=== PATIENT | female | born 1980 | race Caucasian/White ===

== ENCOUNTER 2017-04-03 08:50 | Emergency (ER) | payer MEDICAID ==
[~2017-04-03] VITALS: Ht 172.7 cm; Wt 100.1 kg
[~2017-04-03 08:50] MED LIST: ALBU8HFA PO; BENZ-16 PO; DEC4T PO; PRED10TA PO; PRED20TA PO; TERB12CR TP; [UNRECOGNIZED DRUG - CODE] PO
[2017-04-03] MEDS ORDERED: ipratropium/albuterol 3ml nebule NEB ONE (09:00)
[2017-04-03] MEDS ORDERED: triamcinolone acetonide 40mg/ml inj IM ONE (09:25)
[2017-04-03] MEDS ORDERED: ALBU6.7H INH (09:27)
[2017-04-03 09:32] VITALS: BP 108/51
[2017-04-03] MEDS ORDERED: albuterol 2.5 MG/3 ML nebule NEB ONE (09:55)
== END 2017-04-03 10:23 | disposition home or self-care (01) ==
LOC: ER 08:51
DX: J45.901 Unspecified asthma with (acute) exacerbation (principal); G89.29 Other chronic pain; Z79.899 Other long term (current) drug therapy
CPT/HCPCS: 71045; 94640; 94760; 96372; 99283; J3301

== ENCOUNTER 2018-02-23 19:56 | Emergency (ER) | payer MEDICAID ==
[~2018-02-23] VITALS: Ht 172.7 cm; Wt 86.7 kg
[~2018-02-23 19:56] MED LIST changes: +ALBU6.7H INH
[2018-02-23] MEDS ORDERED: dexamethasone 4mg tablet PO ONE (20:40)
[2018-02-23] MEDS ORDERED: triamcinolone acetonide 40mg/ml inj IM ONE (20:40)
[2018-02-23] MEDS ORDERED: ALBU6.7H INH (20:42)
[2018-02-23] MEDS ORDERED: PRED20TA PO (20:42)
[2018-02-23] MEDS ORDERED: albuterol 2.5 MG/3 ML nebule NEB ONE ×2 (20:50→21:10)
[2018-02-23] MEDS: albuterol 2.5 mg/0.5ml nebule NEB ONE ×2 (20:50→20:55)
--- NOTE | 2018-02-23 20:51 | NUR ---
RT AT BEDSIDE
[2018-02-23 21:33] VITALS: BP 119/74
== END 2018-02-23 21:35 | disposition home or self-care (01) ==
LOC: ER 19:56
DX: J45.901 Unspecified asthma with (acute) exacerbation (principal); G89.29 Other chronic pain; Z98.890 Other specified postprocedural states; Z79.899 Other long term (current) drug therapy; Z79.2 Long term (current) use of antibiotics
CPT/HCPCS: 94640; 94760; 96372; 99284; J3301; J7611; J8540; 99283

== ENCOUNTER 2018-10-18 17:18 | Emergency (ER) | payer MEDICAID ==
[~2018-10-18] VITALS: Ht 172.7 cm; Wt 86.0 kg
[~2018-10-18 17:18] MED LIST changes: -ALBU6.7H INH; +ALBU6.7H9 INH; +AZIT-31 PO; -[UNRECOGNIZED DRUG - CODE] PO
[2018-10-18] MEDS ORDERED: methylPREDNISolone sod succ 125mg/2ml vial IV ONE (17:40)
[2018-10-18] MEDS ORDERED: amox tr/potassium clavulanate 875/125mg TAB PO ONE (17:40)
[2018-10-18] MEDS ORDERED: ipratropium/albuterol 3ml nebule NEB ONE (17:40)
[2018-10-18] MEDS ORDERED: AMOX-580 PO (17:43)
[2018-10-18] MEDS ORDERED: METH4TAB81 PO (17:43)
[2018-10-18] MEDS ORDERED: prednisoLONE 15mg/5ml oral solution 5ml cup PO ONE (18:00)
[2018-10-18] MEDS ORDERED: predniSONE 20 mg tablet PO ONE (18:05)
[2018-10-18] MEDS ORDERED: albuterol 2.5 MG/3 ML nebule NEB ONE (18:50)
[2018-10-18 19:30] VITALS: BP 100/63
== END 2018-10-18 19:31 | disposition home or self-care (01) ==
LOC: ER 17:19
DX: J45.901 Unspecified asthma with (acute) exacerbation (principal); J32.9 Chronic sinusitis, unspecified; G89.29 Other chronic pain; Z98.890 Other specified postprocedural states; Z79.899 Other long term (current) drug therapy
CPT/HCPCS: 94640; 94760; 99284; J7512

== ENCOUNTER 2019-05-03 09:35 | Emergency (ER) | payer MEDICAID ==
[~2019-05-03] VITALS: Ht 172.7 cm; Wt 92.0 kg
[~2019-05-03 09:35] MED LIST changes: +METH4TAB81 PO
[2019-05-03 09:46] VITALS: BP 123/69
[2019-05-03 10:24] LABS: BASOPHILS % (AUTO) 0.6 % (0-1); EOSINOPHILS # (AUTO) 0.2 X10'3 (0-0.9); EOSINOPHILS % (AUTO) 2.6 % (0-6); HEMATOCRIT 35.6 % (35.0-45.0); HEMOGLOBIN 11.5 g/dl (12.0-16.0); LYMPHOCYTES # (AUTO) 1.9 X10'3 (1.1-4.8); MEAN CORPUSCULAR HEMOGLOBIN 23.6 PG (27.0-31.0); MEAN CORPUSCULAR HGB CONC 32.2 g/dL (33.0-36.5); MEAN CORPUSCULAR VOLUME 73.4 FL (78-98); MEAN PLATELET VOLUME 8.4 FL (7.4-10.4); MONOCYTES # (AUTO) 0.2 X10'3 (0-0.9); MONOCYTES % (AUTO) 3.7 % (2-12); NEUTROPHILS # (AUTO) 3.8 X10'3 (1.8-7.7); NEUTROPHILS % (AUTO) 62.1 % (42-75); PLATELET COUNT 164 X10'3 (140-440); RED BLOOD COUNT 4.85 X10'6 (4.20-5.60); RED CELL DISTRIBUTION WIDTH 16.7 % (11.5-14.5); WHITE BLOOD COUNT 6.1 X10'3 (4.5-11.0)
[2019-05-03 10:39] LABS: ALANINE AMINOTRANSFERASE 15 U/L (12-78); ALBUMIN 3.9 G/DL (3.4-5.0); ALBUMIN/GLOBULIN RATIO 1.2 (1.1-1.5); ALKALINE PHOSPHATASE 75 IU/L (46-116); ANION GAP 5 (8-16); ASPARTATE AMINO TRANSFERASE 14 U/L (10-37); BILIRUBIN,TOTAL 0.4 MG/DL (0.1-1.0); BLOOD UREA NITROGEN 10 MG/DL (7-18); BUN/CREATININE RATIO 16.4 (6.6-38.0); CALCIUM 8.2 MG/DL (8.5-10.1); CHLORIDE 112 MMOL/L (99-107); CREATININE 0.61 MG/DL (0.40-0.90); GLUCOSE 99 MG/DL (70-104); POTASSIUM 3.8 MMOL/L (3.5-5.1); SODIUM 140 MMOL/L (135-145); TOTAL CARBON DIOXIDE 23.1 MMOL/L (24-32); TOTAL PROTEIN 7.2 G/DL (6.4-8.2); eGFR > 90 ML/MIN
== END 2019-05-03 11:19 | disposition home or self-care (01) ==
LOC: ER 09:36
DX: R07.2 Precordial pain (principal); J45.909 Unspecified asthma, uncomplicated; G89.29 Other chronic pain; K21.9 Gastro-esophageal reflux disease without esophagitis; F17.200 Nicotine dependence, unspecified, uncomplicated; Z98.51 Tubal ligation status; Z79.899 Other long term (current) drug therapy
CPT/HCPCS: 36415; 71045; 80053; 84484; 85025; 93005; 99285